=== PATIENT | male | born 1950 | race Caucasian/White ===

== ENCOUNTER → 2021-10-08 | Outpatient (CLI) | payer OTHER ==
[~2021-10-08] MED LIST: BUFFERIN 81 MG81 MG; CENTRUM TABLET1 TAB PO; COUMADIN; FISHOIL; LORTAB 7.5/5001 TA3 PO; ZOCOR 10 MG TAB10 MG PO; ZOMIG ZMT2.5 MG PO
== END ==
LOC: MRI 09-26 09:39
PROVIDERS: ATTEND Orthopaedic Surgery
DX: M75.102 Unspecified rotator cuff tear or rupture of left shoulder, not specified as traumatic (principal); Z98.890 Other specified postprocedural states